=== PATIENT | female | born 1950 ===

== ENCOUNTER 2018-06-24 09:35 | Day surgery (SDC) | payer MEDICARE ==
[2018-06-17 08:31] VITALS: BMI 25.7
--- NOTE | 2018-06-24 12:16 | CP.SDSHP ---
Same Day Surgery H & P - History Proposed Procedure: US guided FNA of right submandibular mass Pre-Op Diagnosis: US guided FNA of right submandibular mass - Allergies Allergies: Allergies No Known Allergies Allergy (Verified 06/17/18 08:31) - Physical Exam Mental Status: Alert & Oriented x3 - Impression Impression: Pt with a 2.5 cm right submandibular mass. Plan US guided FNA. Pt. Evaluated Today:Candidate for Anesthesia & Procedure: No Short Stay Discharge - Short Stay Discharge Admitting Diagnosis/Reason for Visit: LOCALIZED SWELLING, MASS AND LUMP, NECK Disposition: HOME/ ROUTINE
--- NOTE | 2018-06-24 12:17 | PCM.SURG1 ---
Surgeon's Initial Post Op Note - Surgeon's Notes Surgeon: Jonathan Cota MD Showroom Salesperson: NONE Type of Anesthesia: Local Pre-Operative Diagnosis: right submandibular mass Operative Findings: 2.5 cm right submandibular mass Post-Operative Diagnosis: right submandibular mass Operation Performed: US guided FNA of right submandibular mass Specimen/Specimens Removed: 25 g FNA x 6 passes Estimated Blood Loss: EBL {In ML}: 0 Blood Products Given: N/A Drains Used: No Drains Post-Op Condition: Good Date of Surgery/Procedure: 06/24/18 Time of Surgery/Procedure: 12:15
--- NOTE | 2018-06-24 14:29 | US ---
PROCEDURE: Date of procedure: 06/24/2018 Procedure: Ultrasound-guided FNA of right supraclavicular lymph node, CPT 93303 Ultrasound guidance for biopsy, [id number] Medications: 3cc 1% Lidocaine HISTORY: Enlarged right submandibular lymph nodes 2.3 Cm. TECHNIQUE: Following informed consent and procedure time-out, limited ultrasound patient's right neck demonstrates a enlarged right submandibular lymph node measuring 2.3 centimeter. The lymph node is round and hypoechoic. The patient's neck was prepped and draped in the usual sterile fashion. The skin was anesthetized with 1 percent lidocaine. Ultrasound-guided fine needle aspiration was then performed using a 25 gauge needle. A total of 6 passes were made into the lymph node under direct ultrasound guidance. FNA specimens were obtained and sent for routine pathology and flow cytometry. A post biopsy ultrasound showed no hematoma. IMPRESSION: Ultrasound-guided biopsy of enlarged right submandibular lymph node.
== END 2018-06-24 15:30 | disposition home or self-care (01) ==
LOC: C.SPRAD 09:35
PROVIDERS: ATTEND Radiology Vascular & Interventional Radiology
DX: R22.1 Localized swelling, mass and lump, neck (principal)